=== PATIENT | female | born 1975 | race Caucasian/White ===

== ENCOUNTER 2018-01-15 20:07 | Emergency (ER) | payer MEDICARE, MEDICAID ==
[~2018-01-15] VITALS: Ht 160 cm; Wt 97.4 kg
[2018-01-15 20:55] VITALS: BP 125/78
== END 2018-01-15 20:57 | disposition home or self-care (01) ==
LOC: ER 20:08
DX: R51 Headache (principal); R11.0 Nausea; R19.7 Diarrhea, unspecified; R59.1 Generalized enlarged lymph nodes; Z86.73 Personal history of transient ischemic attack (TIA), and cerebral infarction without residual deficits; Z91.018 Allergy to other foods; Z91.040 Latex allergy status; Z88.8 Allergy status to other drugs, medicaments and biological substances; Z88.5 Allergy status to narcotic agent
CPT/HCPCS: 99281